=== PATIENT | male | born 1960 | race Caucasian/White ===

== ENCOUNTER 2016-05-17 08:29 | Outpatient (CLI) | payer OTHER ==
--- NOTE | 2016-05-17 10:52 | DIAGNOSTIC IMAGING REPORT ---
PROCEDURE: US RENAL VASCULAR - BILATERAL INDICATION: RENAL BRUIT TECHNIQUE: Torres scale and color Doppler sonographic images of the kidneys were performed. Spectral waveform analysis was obtained of the renal arteries, intrarenal vessels, and aorta, including renal resistive indices and calculation of renal to aortic ratios. COMPARISON: None. FINDINGS: AORTIC VELOCITY: 40 cm/sec RIGHT KIDNEY: Right kidney is of normal size 12.3 x 5.6 x 5.8 cm) with normal morphology. RIGHT RENAL ARTERY VELOCITIES: Right renal artery velocities are normal (proximal not seen; mid 58 cm/s; distal 43 cm/s). RIGHT RENAL AORTIC RATIO: Right renal to aortic ratios are normal (proximal not seen, mid 1.45 distal 1.1 RIGHT RENAL RESISTIVE INDICES: Right renal resistive indices are normal (upper pole 0.59 midpole 0.62 inferior pole 0.68 LEFT KIDNEY: Left kidney is of normal size 13.4 x 5.9 x six cm) with normal morphology. LEFT RENAL ARTERY VELOCITIES: Left renal artery velocities are normal (proximal 56 cm/s; mid 38 cm/s; distal 48 cm/s). LEFT RENAL AORTIC RATIO: Left renal to aortic ratios are normal (proximal 1.4 mid 1.0 distal 1.2 LEFT RENAL RESISTIVE INDICES: Left renal resistive indices are normal (upper pole 0.64 midpole 0.59 inferior pole 0.58 IMPRESSION: 1. Normal, no narrowing or stenosis
== END 2016-05-17 23:00 ==
LOC: US SRH 08:29
DX: R09.89 Other specified symptoms and signs involving the circulatory and respiratory systems (principal)